=== PATIENT | male | born 1945 | race Two or more races ===

== ENCOUNTER → 2019-04-28 | Outpatient (CLI) | payer MEDICARE | END | disposition home or self-care (01) | LOC: CFH 12:27 | PROVIDERS: ATTEND Physician Assistant Medical | DX: M47.817 Spondylosis without myelopathy or radiculopathy, lumbosacral region (principal) | CPT/HCPCS: 72148 ==

== ENCOUNTER 2019-05-22 00:30 | Emergency (ER) | payer MEDICARE ==
[~2019-05-22] VITALS: Ht 165.1 cm; Wt 75.0 kg
[2019-05-22 04:10] VITALS: BP 146/76
== END 2019-05-22 04:12 | disposition short-term general hospital (02) ==
LOC: ED 00:55
DX: I63.9 Cerebral infarction, unspecified (principal); I60.8 Other nontraumatic subarachnoid hemorrhage; R94.31 Abnormal electrocardiogram [ECG] [EKG]; R74.8 Abnormal levels of other serum enzymes; I10 Essential (primary) hypertension; E11.9 Type 2 diabetes mellitus without complications
CPT/HCPCS: 36415; 70450; 70496; 70498; 71045; 72190; 73080; 80053; 84484; 85025; 85610; 85730; 93005; 96365; 96375; 99291; 99292; J1100; J1953; J7050; Q9967

== ENCOUNTER 2020-01-18 05:33 | Inpatient (IN) | payer MEDICARE ==
[~2020-01-18] VITALS: Ht 165.1 cm; Wt 62.8 kg
[~2020-01-18 05:33] MED LIST: ACET650S21 PO; ASPI-496 PO; ATOR20TA37 PO; FLUT1BLS3 IH; IBUP200T64 PO; LISI-167 PO; METF500T17 PO
[2020-01-18] MEDS ORDERED: LACTATED RINGERS 1,000 ML IV SCH (07:01)
[2020-01-18 07:02] VITALS: BP 131/77
[2020-01-18 07:10] LABS: BASOPHILS # (AUTO) 0.05 x10^3/uL (0-0.1); BASOPHILS % (AUTO) 1 % (0-1); EOSINOPHILS # (AUTO) 0.99 x10^3/uL (0-0.4); EOSINOPHILS % (AUTO) 11 % (1-7); LYMPHOCYTES # (AUTO) 1.69 x10^3/uL (1-3.4); LYMPHOCYTES % (AUTO) 19 % (22-44); MD NO; MEAN CORPUSCULAR HEMOGLOBIN 26.3 pg (27.5-34.5); MEAN CORPUSCULAR HGB CONC 32.1 g/dL (33.2-36.2); MEAN CORPUSCULAR VOLUME 81.8 fL (81-97); MEAN PLATELET VOLUME 9.3 fL (7.4-10.4); MONOCYTES # (AUTO) 0.65 x10^3/uL (0.2-0.8); MONOCYTES % (AUTO) 8 % (2-9); NEUTROPHILS # (AUTO) 5.35 x10^3/uL (1.8-6.8); NEUTROPHILS % (AUTO) 61 % (42-75); PLATELET COUNT 194 x10^3/uL (130-400); RED BLOOD COUNT 5.56 x10^6/uL (4.38-5.82); RED CELL DISTRIBUTION WIDTH 18.2 % (9.4-14.8)
[2020-01-18 07:12] LABS: ALANINE AMINOTRANSFERASE 32 U/L (12-78); ALBUMIN 3.6 g/dL (3.4-5.0); ANION GAP 9 mmol/L (5-15); CALCIUM 9.6 mg/dL (8.5-10.1); CHLORIDE 105 mmol/L (98-107); INTERNATIONAL NORMALIZED RATIO 1.02 (0.93-1.1); PROTHROMBIN TIME 10.8 Seconds (9.6-11.5)
[2020-01-18 07:14] LABS: ALKALINE PHOSPHATASE 72 U/L (45-117); BILIRUBIN,TOTAL 0.4 mg/dL (0.2-1.0); TOTAL PROTEIN 7.5 g/dL (6.4-8.2)
[2020-01-18] MEDS ORDERED: FENTANYL PF 250 MCG/5ML ONE (10:40)
[2020-01-18] MEDS ORDERED: PHENYLEPHRINE 10 MG/ML ONE (10:54)
[2020-01-18] MEDS ORDERED: BUPIVACAINE/PF-EPI 0.5% 1:200K INFIL ONE (11:38)
[2020-01-18] MEDS ORDERED: BACITRACIN 50,000 UNIT IRRIG ONE (11:39)
[2020-01-18] MEDS ORDERED: BACITRACIN OINT 500U/GM, 15 GM TP ONE (11:39)
[2020-01-18] MEDS ORDERED: SUCCINYLCHOLINE 20 MG/ML, 10ML ONE (12:17)
[2020-01-18] MEDS ORDERED: ONDANSETRON 2MG/ML, 2ML ONE (12:17)
[2020-01-18] MEDS ORDERED: PROPOFOL 10 MG/ML, 20ML ONE (12:17)
[2020-01-18] MEDS ORDERED: CEFAZOLIN 1,000 MG ONE (12:17)
[2020-01-18] MEDS ORDERED: SUGAMMADEX 200 MG/2 ML IVPush ONE (12:17)
[2020-01-18] MEDS ORDERED: ROCURONIUM 10MG/ML,5ML ONE (12:17)
[2020-01-18] MEDS ORDERED: DEXAMETHASONE 4 MG/ML, 1ML ONE (12:17)
[2020-01-18] MEDS ORDERED: hydrALAzine 20 MG/ML, 1ML ONE (13:16)
[2020-01-18] MEDS ORDERED: FENTANYL PF 100 MCG/2ML ONE (13:22)
[2020-01-18] MEDS ORDERED: OXYcodone 5 MG/5 ML ORAL.SOL UDC ONE (13:23)
[2020-01-18] MEDS: FENTANYL PF 100 MCG/2ML IV PRN ×2 (13:25→13:30)
[2020-01-18] MEDS ORDERED: OXYcodone 5 MG/5 ML ORAL.SOL UDC PO PRN (13:30)
[2020-01-18] MEDS ORDERED: LABETALOL 5MG/ML, 20ML IV PRN (13:30)
[2020-01-18] MEDS ORDERED: hydrALAzine 20 MG/ML, 1ML IV PRN (13:30)
[2020-01-18] MEDS ORDERED: IBUPROFEN 200 MG TABLET PO PRN (14:30)
[2020-01-18] MEDS ORDERED: ACETAMINOPHEN 325 MG TABLET PO PRN (14:30)
[2020-01-18] MEDS ORDERED: metFORMIN 500 MG TABLET PO SCH (17:00)
[2020-01-18] MEDS ORDERED: ATORVASTATIN 20 MG TABLET PO SCH (21:00)
[2020-01-19] MEDS ORDERED: LISINOPRIL 5 MG TABLET PO SCH (09:00)
== END 2020-01-18 16:35 | disposition home or self-care (01) | DRG 31 ==
LOC: ORIP 05:33
PROVIDERS: ADMIT Neurological Surgery; ATTEND Neurological Surgery
PROC: 00164J6 Bypass Cerebral Ventricle to Peritoneal Cavity with Synthetic Substitute, Percutaneous Endoscopic Approach (ICD-10-PCS; principal; 2020-01-18 08:30)
DX: G91.9 Hydrocephalus, unspecified (principal); G93.5 Compression of brain; I10 Essential (primary) hypertension; E11.8 Type 2 diabetes mellitus with unspecified complications; Z85.841 Personal history of malignant neoplasm of brain; Z72.0 Tobacco use; Z80.9 Family history of malignant neoplasm, unspecified; Z82.49 Family history of ischemic heart disease and other diseases of the circulatory system; Z83.3 Family history of diabetes mellitus; E78.5 Hyperlipidemia, unspecified
CPT/HCPCS: 70450; 80053; 82962; 85025; 85610; 85730; 93005; J0690; J1100; J2405; J2704; J3010; C1727; C1894; J0330; J0360; J2370

== ENCOUNTER 2020-01-20 09:24 | Inpatient (IN) | payer MEDICARE ==
[~2020-01-20] VITALS: Ht 165.1 cm; Wt 67.1 kg
[2020-01-20] MEDS ORDERED: HYDROmorphone 1 MG/ML, 1ML INJ ONE (09:44)
[2020-01-20] MEDS ORDERED: ONDANSETRON 2MG/ML, 2ML IVPush ONE (10:00)
[2020-01-20] MEDS ORDERED: HYDROmorphone 1 MG/ML, 1ML INJ IVPush PRN (10:00)
[2020-01-20 10:01] LABS: MEAN CORPUSCULAR HEMOGLOBIN 26.4 pg (27.5-34.5); MEAN CORPUSCULAR HGB CONC 32.7 g/dL (33.2-36.2); MEAN CORPUSCULAR VOLUME 80.8 fL (81-97); MEAN PLATELET VOLUME 10.4 fL (7.4-10.4); PLATELET COUNT 123 x10^3/uL (130-400); RED BLOOD COUNT 4.39 x10^6/uL (4.38-5.82); RED CELL DISTRIBUTION WIDTH 18.2 % (9.4-14.8)
[2020-01-20 10:06] LABS: ALBUMIN 3.2 g/dL (3.4-5.0); ANION GAP 7 mmol/L (5-15); CALCIUM 9.1 mg/dL (8.5-10.1); CHLORIDE 104 mmol/L (98-107); INTERNATIONAL NORMALIZED RATIO 1.04 (0.93-1.1)
[2020-01-20 10:50] LABS: BASOPHILS # (AUTO) 0.07 x10^3/uL (0-0.1); BASOPHILS % (AUTO) 1 % (0-1); EOSINOPHILS # (AUTO) 0.01 x10^3/uL (0-0.4); EOSINOPHILS % (AUTO) 0 % (1-7); LYMPHOCYTES # (AUTO) 0.97 x10^3/uL (1-3.4); LYMPHOCYTES % (AUTO) 9 % (22-44); MD SCAN; MONOCYTES # (AUTO) 1.07 x10^3/uL (0.2-0.8); MONOCYTES % (AUTO) 10 % (2-9); NEUTROPHILS # (AUTO) 8.76 x10^3/uL (1.8-6.8); NEUTROPHILS % (AUTO) 81 % (42-75)
--- NOTE | 2020-01-20 11:05 | NUR ---
BIB EMS FOR LEFT HIP FRACTURE W DEFORMITY, HIP EXTERNALLY ROTATED. SENSATION INTACT. PT WAS SMOKING , GOT DIZZY AND FELL. DENIES LOC. PT HAS HAS HISTORY OF BRAIN CANCER W RECENT BRAIN SHUNT PLACED RECENTLY. PT NOT IN DISTRESS, REPSIRATIONS EVEN AND UNLABORED. DENIES SOB, COUGH, FEVER, CHEST PAIN ENGINEER AND GEOLOGIST APPLIED. VSS, PAIN 10/10, MEDICATED PER ORDERS. EKG DONE.
[2020-01-20] MEDS ORDERED: hydrALAzine 20 MG/ML, 1ML IVPush PRN (12:00)
[2020-01-20] MEDS ORDERED: ONDANSETRON 2MG/ML, 2ML IVPush PRN (12:00)
--- NOTE | 2020-01-20 12:34 | NUR ---
PT VOIDED 300 ML. LAB AT BEDSIDE. VSS,
--- NOTE | 2020-01-20 12:50 | NUR ---
REPORT TO STEPH
[2020-01-20 13:14] LABS: FREE T4 (FREE THYROXINE) 1.51 ng/dL (0.76-1.46)
[2020-01-20] MEDS ORDERED: OMNIPAQUE 350 MG/ML, 100ML BOTTLE ONE (13:18)
[2020-01-20 13:55] VITALS: BP 165/83
[2020-01-20] MEDS ORDERED: PHARMACY INSTRUCTION MC ONE (15:00)
[2020-01-20] MEDS: HEPARIN 5,000 UNITS/ML, 1ML SQ SCH ×2 (15:27→21:18)
[2020-01-20] MEDS: D5%-0.45NACL+KCL 20MEQ 1,000 ML IV SCH (15:27)
[2020-01-20] MEDS: NICOTINE 21 MG/24 HR PATCH.TD24 TD SCH (15:27)
[2020-01-20] MEDS: INSULIN LISPRO 100 UNITS/ML, PEN SQ-INSULIN SCH ×2 (16:47→21:15)
[2020-01-20 18:30] VITALS: BP 150/74
[2020-01-20] MEDS: morphine SULFATE 10 MG/ML, 1ML IVPush PRN (19:41)
[2020-01-20] MEDS: ACETAMINOPHEN 325 MG TABLET PO PRN (22:50)
[2020-01-21] MEDS: D5%-0.45NACL+KCL 20MEQ 1,000 ML IV SCH (01:39)
[2020-01-21 01:40] VITALS: BP 135/74
[2020-01-21] MEDS: morphine SULFATE 10 MG/ML, 1ML IVPush PRN ×2 (03:56→20:27)
[2020-01-21 05:58] LABS: BASOPHILS # (AUTO) 0.03 x10^3/uL (0-0.1); BASOPHILS % (AUTO) 0 % (0-1); EOSINOPHILS # (AUTO) 0.06 x10^3/uL (0-0.4); EOSINOPHILS % (AUTO) 1 % (1-7); LYMPHOCYTES # (AUTO) 0.93 x10^3/uL (1-3.4); LYMPHOCYTES % (AUTO) 10 % (22-44); MD NO; MEAN CORPUSCULAR HEMOGLOBIN 26.8 pg (27.5-34.5); MEAN CORPUSCULAR HGB CONC 32.8 g/dL (33.2-36.2); MEAN CORPUSCULAR VOLUME 81.6 fL (81-97); MEAN PLATELET VOLUME 9.7 fL (7.4-10.4); MONOCYTES # (AUTO) 0.94 x10^3/uL (0.2-0.8); MONOCYTES % (AUTO) 10 % (2-9); NEUTROPHILS # (AUTO) 7.84 x10^3/uL (1.8-6.8); NEUTROPHILS % (AUTO) 80 % (42-75); PLATELET COUNT 131 x10^3/uL (130-400); RED CELL DISTRIBUTION WIDTH 18.4 % (9.4-14.8)
[2020-01-21 06:04] LABS: ALBUMIN 2.7 g/dL (3.4-5.0); ANION GAP 6 mmol/L (5-15); CALCIUM 8.6 mg/dL (8.5-10.1); CHLORIDE 102 mmol/L (98-107)
[2020-01-21 06:09] LABS: ALANINE AMINOTRANSFERASE 71 U/L (12-78); ALKALINE PHOSPHATASE 60 U/L (45-117); BILIRUBIN,TOTAL 0.6 mg/dL (0.2-1.0); CHOL/HDL RATIO 2.7; CHOLESTEROL, TOTAL 93 mg/dL (140-239); CREATININE 0.76 mg/dL (0.7-1.3); HDL CHOL % 38 % (26-37); HDL CHOLESTEROL (DIRECT) 35 mg/dL (40-60); LDL CHOLESTEROL,CALCULATED 41 mg/dL (54-169); LDL/HDL RATIO 1.2 (0.5-3.0); TOTAL PROTEIN 6.3 g/dL (6.4-8.2); TRIGLYCERIDES 86 mg/dL (50-200); VLDL CHOLESTEROL 17 mg/dL (0-25)
[2020-01-21 06:38] VITALS: BP 154/82
[2020-01-21] MEDS: INSULIN LISPRO 100 UNITS/ML, PEN SQ-INSULIN SCH ×4 (07:00→20:26)
[2020-01-21] MEDS ORDERED: PANTOPRAZOLE 40 MG IV IVPush SCH (07:30)
[2020-01-21] MEDS: LACTATED RINGERS 1,000 ML IV SCH ×2 (08:30→20:26)
[2020-01-21] MEDS: LISINOPRIL 5 MG TABLET PO SCH (09:00)
[2020-01-21] MEDS ORDERED: GADOTERATE 7.5 MMOL/15 ML SYR ONE (09:26)
[2020-01-21] MEDS ORDERED: PROPOFOL 50 ML ONE (11:22)
[2020-01-21] MEDS ORDERED: FENTANYL PF 100 MCG/2ML ONE (11:27)
[2020-01-21] MEDS ORDERED: CEFAZOLIN 1,000 MG ONE (11:27)
[2020-01-21] MEDS ORDERED: ROCURONIUM 10 MG/ML,10ML ONE (11:27)
[2020-01-21] MEDS ORDERED: ONDANSETRON 2MG/ML, 2ML ONE (11:27)
[2020-01-21] MEDS ORDERED: SUCCINYLCHOLINE 20 MG/ML, 10ML ONE (11:43)
[2020-01-21] MEDS ORDERED: FENTANYL PF 250 MCG/5ML ONE (11:45)
[2020-01-21] MEDS ORDERED: MIDAZOLAM 1 MG/ML, 2ML IV PRN (12:00)
[2020-01-21] MEDS ORDERED: LABETALOL 5MG/ML, 20ML IV PRN (12:00)
[2020-01-21] MEDS ORDERED: ONDANSETRON 2MG/ML, 2ML IV PRN (12:00)
[2020-01-21] MEDS ORDERED: ONDANSETRON ODT 8 MG PO PRN (12:00)
[2020-01-21] MEDS ORDERED: EPHEDRINE 50 MG/ML, 1ML IM PRN (12:00)
[2020-01-21] MEDS ORDERED: HYDROmorphone 2 MG/ML, 1ML IVPush PRN (12:00)
[2020-01-21] MEDS ORDERED: OXYcodone 5 MG/5 ML ORAL.SOL UDC PO PRN (12:00)
[2020-01-21] MEDS ORDERED: FENTANYL PF 100 MCG/2ML IV PRN (12:00)
[2020-01-21] MEDS ORDERED: PROPOFOL 10 MG/ML, 20ML ONE ×2 (12:50)
[2020-01-21] MEDS: NICOTINE 21 MG/24 HR PATCH.TD24 TD SCH (14:00)
[2020-01-21] MEDS ORDERED: hydrALAzine 20 MG/ML, 1ML ONE (14:15)
[2020-01-21 18:15] LABS: MICROSCOPIC AUTO
[2020-01-21 18:21] LABS: CULTURE INDICATED? NO
[2020-01-21 19:40] VITALS: BP 124/73
[2020-01-21] MEDS: ATORVASTATIN 20 MG TABLET PO SCH (20:27)
[2020-01-21] MEDS: ACETAMINOPHEN 325 MG TABLET PO PRN (20:27)
[2020-01-21 23:30] VITALS: BP 126/71
[2020-01-22 03:22] VITALS: BP 148/69
[2020-01-22] MEDS: morphine SULFATE 10 MG/ML, 1ML IVPush PRN ×4 (04:14→19:40)
[2020-01-22 05:54] LABS: BASOPHILS # (AUTO) 0.02 x10^3/uL (0-0.1); BASOPHILS % (AUTO) 0 % (0-1); EOSINOPHILS # (AUTO) 0.19 x10^3/uL (0-0.4); EOSINOPHILS % (AUTO) 3 % (1-7); LYMPHOCYTES % (AUTO) 11 % (22-44); MD NO; MEAN CORPUSCULAR HEMOGLOBIN 26.6 pg (27.5-34.5); MEAN CORPUSCULAR HGB CONC 32.6 g/dL (33.2-36.2); MEAN CORPUSCULAR VOLUME 81.6 fL (81-97); MEAN PLATELET VOLUME 10.4 fL (7.4-10.4); MONOCYTES # (AUTO) 0.77 x10^3/uL (0.2-0.8); MONOCYTES % (AUTO) 11 % (2-9); NEUTROPHILS # (AUTO) 5.35 x10^3/uL (1.8-6.8); NEUTROPHILS % (AUTO) 75 % (42-75); PLATELET COUNT 109 x10^3/uL (130-400); RED BLOOD COUNT 3.23 x10^6/uL (4.38-5.82); RED CELL DISTRIBUTION WIDTH 17.9 % (9.4-14.8)
[2020-01-22 05:56] LABS: ALBUMIN 2.4 g/dL (3.4-5.0); ANION GAP 6 mmol/L (5-15); CALCIUM 8.2 mg/dL (8.5-10.1); CHLORIDE 106 mmol/L (98-107)
[2020-01-22 05:59] LABS: ALANINE AMINOTRANSFERASE 68 U/L (12-78); ALKALINE PHOSPHATASE 61 U/L (45-117); BILIRUBIN,TOTAL 0.7 mg/dL (0.2-1.0); CREATININE 0.65 mg/dL (0.7-1.3); TOTAL PROTEIN 5.7 g/dL (6.4-8.2)
[2020-01-22] MEDS ORDERED: PANTOPRAZOLE 40 MG IV IVPush SCH (06:00)
[2020-01-22] MEDS ORDERED: PANTOPRAZOLE 40MG TABLET PO SCH (06:00)
[2020-01-22] MEDS: LACTATED RINGERS 1,000 ML IV SCH ×2 (06:17→19:00)
[2020-01-22 06:45] VITALS: BP 130/70
[2020-01-22] MEDS: INSULIN LISPRO 100 UNITS/ML, PEN SQ-INSULIN SCH ×4 (07:00→21:04)
[2020-01-22 09:17] VITALS: BP 119/66
[2020-01-22] MEDS: LISINOPRIL 5 MG TABLET PO SCH (09:17)
--- NOTE | 2020-01-22 11:34 | NUR ---
CHOPPED/THINS discharge Recommendations are ongoing skilled [facility] services in [facility] Addendum: 01/22/20 at [address] Amended: Links added.
[2020-01-22 14:05] VITALS: BP 122/64
[2020-01-22] MEDS: NICOTINE 21 MG/24 HR PATCH.TD24 TD SCH (15:05)
[2020-01-22] MEDS: ACETAMINOPHEN 325 MG TABLET PO PRN (19:40)
[2020-01-22 20:00] VITALS: BP 112/64
[2020-01-22] MEDS: BISACODYL 10 MG SUPP PR PRN (20:57)
[2020-01-22] MEDS: ATORVASTATIN 20 MG TABLET PO SCH (20:57)
[2020-01-22] MEDS: HEPARIN 5,000 UNITS/ML, 1ML SQ SCH (20:57)
[2020-01-23 01:58] VITALS: BP 137/66
[2020-01-23] MEDS: morphine SULFATE 10 MG/ML, 1ML IVPush PRN (02:21)
[2020-01-23] MEDS: LACTATED RINGERS 1,000 ML IV SCH (05:04)
[2020-01-23] MEDS: ACETAMINOPHEN 325 MG TABLET PO PRN (05:04)
[2020-01-23] MEDS: HEPARIN 5,000 UNITS/ML, 1ML SQ SCH ×3 (05:04→20:42)
[2020-01-23 06:45] VITALS: BP 115/57
[2020-01-23] MEDS: LISINOPRIL 5 MG TABLET PO SCH (07:55)
[2020-01-23] MEDS: INSULIN LISPRO 100 UNITS/ML, PEN SQ-INSULIN SCH ×4 (07:55→20:45)
[2020-01-23 07:58] VITALS: BP 134/67
[2020-01-23 08:16] LABS: MEAN CORPUSCULAR HEMOGLOBIN 26.6 pg (27.5-34.5); MEAN CORPUSCULAR HGB CONC 32.7 g/dL (33.2-36.2); MEAN CORPUSCULAR VOLUME 81.4 fL (81-97); MEAN PLATELET VOLUME 8.9 fL (7.4-10.4); PLATELET COUNT 137 x10^3/uL (130-400); RED BLOOD COUNT 2.66 x10^6/uL (4.38-5.82); RED CELL DISTRIBUTION WIDTH 17.8 % (9.4-14.8)
[2020-01-23 08:21] LABS: HEMOGRAM NOTE RECHECKED
[2020-01-23 08:38] LABS: BASOPHILS # (AUTO) 0.02 x10^3/uL (0-0.1); BASOPHILS % (AUTO) 0 % (0-1); EOSINOPHILS # (AUTO) 0.26 x10^3/uL (0-0.4); EOSINOPHILS % (AUTO) 5 % (1-7); LYMPHOCYTES # (AUTO) 0.65 x10^3/uL (1-3.4); LYMPHOCYTES % (AUTO) 11 % (22-44); MD SCAN; MONOCYTES # (AUTO) 0.58 x10^3/uL (0.2-0.8); MONOCYTES % (AUTO) 10 % (2-9); NEUTROPHILS # (AUTO) 4.27 x10^3/uL (1.8-6.8); NEUTROPHILS % (AUTO) 74 % (42-75)
[2020-01-23 14:10] VITALS: BP 143/70
[2020-01-23] MEDS: NICOTINE 21 MG/24 HR PATCH.TD24 TD SCH (15:10)
[2020-01-23] MEDS: OXYcodone/APAP 5/325MG TABLET PO PRN ×2 (15:10→20:48)
[2020-01-23] MEDS: BISACODYL 10 MG SUPP PR PRN (15:13)
[2020-01-23 18:06] LABS: BASOPHILS # (AUTO) 0.03 x10^3/uL (0-0.1); BASOPHILS % (AUTO) 0 % (0-1); EOSINOPHILS # (AUTO) 0.19 x10^3/uL (0-0.4); EOSINOPHILS % (AUTO) 2 % (1-7); LYMPHOCYTES # (AUTO) 1.16 x10^3/uL (1-3.4); LYMPHOCYTES % (AUTO) 15 % (22-44); MD NO; MEAN CORPUSCULAR HEMOGLOBIN 26.4 pg (27.5-34.5); MEAN CORPUSCULAR HGB CONC 32.7 g/dL (33.2-36.2); MEAN CORPUSCULAR VOLUME 80.9 fL (81-97); MEAN PLATELET VOLUME 9.1 fL (7.4-10.4); MONOCYTES # (AUTO) 0.77 x10^3/uL (0.2-0.8); MONOCYTES % (AUTO) 10 % (2-9); NEUTROPHILS # (AUTO) 5.57 x10^3/uL (1.8-6.8); NEUTROPHILS % (AUTO) 72 % (42-75); PLATELET COUNT 161 x10^3/uL (130-400); RED BLOOD COUNT 2.99 x10^6/uL (4.38-5.82); RED CELL DISTRIBUTION WIDTH 17.6 % (9.4-14.8)
[2020-01-23 19:17] VITALS: BP 118/61
[2020-01-23] MEDS: ATORVASTATIN 20 MG TABLET PO SCH (20:41)
[2020-01-23] MEDS ORDERED: TEMAZEPAM 15 MG CAPSULE ONE (23:00)
[2020-01-23] MEDS ORDERED: TEMAZEPAM 15 MG CAPSULE PO PRN (23:00)
[2020-01-24 02:36] VITALS: BP 139/62
[2020-01-24 05:09] LABS: BASOPHILS # (AUTO) 0.02 x10^3/uL (0-0.1); BASOPHILS % (AUTO) 0 % (0-1); EOSINOPHILS # (AUTO) 0.37 x10^3/uL (0-0.4); EOSINOPHILS % (AUTO) 5 % (1-7); LYMPHOCYTES # (AUTO) 1.06 x10^3/uL (1-3.4); LYMPHOCYTES % (AUTO) 13 % (22-44); MD NO; MEAN CORPUSCULAR HEMOGLOBIN 26.9 pg (27.5-34.5); MEAN CORPUSCULAR HGB CONC 33.2 g/dL (33.2-36.2); MEAN CORPUSCULAR VOLUME 81.1 fL (81-97); MEAN PLATELET VOLUME 9.3 fL (7.4-10.4); MONOCYTES # (AUTO) 0.65 x10^3/uL (0.2-0.8); MONOCYTES % (AUTO) 8 % (2-9); NEUTROPHILS # (AUTO) 5.98 x10^3/uL (1.8-6.8); NEUTROPHILS % (AUTO) 74 % (42-75); PLATELET COUNT 178 x10^3/uL (130-400); RED CELL DISTRIBUTION WIDTH 17.9 % (9.4-14.8)
[2020-01-24] MEDS: HEPARIN 5,000 UNITS/ML, 1ML SQ SCH ×2 (06:00→14:31)
[2020-01-24 07:15] VITALS: BP 158/73
[2020-01-24] MEDS: LISINOPRIL 5 MG TABLET PO SCH (08:13)
[2020-01-24] MEDS: OXYcodone/APAP 5/325MG TABLET PO PRN ×2 (08:13→14:30)
[2020-01-24] MEDS: INSULIN LISPRO 100 UNITS/ML, PEN SQ-INSULIN SCH ×2 (08:14→11:12)
[2020-01-24] MEDS ORDERED: LISINOPRIL 5 MG TABLET PO SCH (09:00)
[2020-01-24] MEDS ORDERED: HEPA50002 SQ (10:54)
[2020-01-24] MEDS ORDERED: LISI5TAB7 PO (10:54)
[2020-01-24 12:35] VITALS: BP 120/61
[2020-01-24] MEDS: NICOTINE 21 MG/24 HR PATCH.TD24 TD SCH (14:33)
[2020-01-24] MEDS ORDERED: OXYC5CAP2 PO (14:41)
== END 2020-01-24 16:17 | DRG 480 ==
LOC: ED 09:53 → SUATTDRO 11:54 → EDIP 11:59 → 4NE 13:33
PROVIDERS: ADMIT Hospitalist; ATTEND Internal Medicine
PROC: 0QS706Z Reposition Left Upper Femur with Intramedullary Internal Fixation Device, Open Approach (ICD-10-PCS; principal; 2020-01-21 10:00)
DX: S72.142A Displaced intertrochanteric fracture of left femur, initial encounter for closed fracture (principal); G93.41 Metabolic encephalopathy; D62 Acute posthemorrhagic anemia; W18.30XA Fall on same level, unspecified, initial encounter; E11.9 Type 2 diabetes mellitus without complications; F03.90 Unspecified dementia, unspecified severity, without behavioral disturbance, psychotic disturbance, mood disturbance, and anxiety; I45.10 Unspecified right bundle-branch block; R13.10 Dysphagia, unspecified; Y93.89 Activity, other specified; Y99.8 Other external cause status; Z86.73 Personal history of transient ischemic attack (TIA), and cerebral infarction without residual deficits; Y92.009 Unspecified place in unspecified non-institutional (private) residence as the place of occurrence of the external cause; Z92.21 Personal history of antineoplastic chemotherapy; Z92.3 Personal history of irradiation; Z85.841 Personal history of malignant neoplasm of brain; Z98.2 Presence of cerebrospinal fluid drainage device
CPT/HCPCS: 36415; 70450; 71045; 71260; 74177; 76000; 80048; 80053; 80061; 81001; 82040; 82140; 82728; 82962; 83036; 83540; 83550; 84439; 84443; 85025; 85610; 85730; 88307; 88311; 93005; 96374; C1713; G0378; J0690; J1170; J1644; J2405; J2704; J3010; Q9967; A9575; C9113; J0330; J0360; J1815; J2270; J3480; J7120

== ENCOUNTER 2020-02-21 09:04 | Inpatient (IN) | payer MEDICARE ==
[~2020-02-21] VITALS: Ht 177.8 cm; Wt 58.2 kg
[~2020-02-21 09:04] MED LIST changes: +HEPA50002 SQ; +LISI5TAB7 PO; +OXYC5CAP2 PO
--- NOTE | 2020-02-21 09:05 | NUR ---
Pt BIB [facility] after being found down at home with a GCS of 6 and a glucose of 25. Pt called [facility] and reports last "normal" time was 2100 last night. Pt received glucose enroute. Pt is restless and refusing to stay still despite reorientation. Pt does not answer questions asked in lao or romanian to primary RN. Pt is P/W/D, NAD, moving all extremities. 09 Asuh CHANG at BS for Eval and to discuss POC. 09 Glory ROJAS at BS for Eval, EKG obtained, POC discussed.
[2020-02-21] MEDS ORDERED: SODIUM CHLORIDE 0.9% 1,000ML IVBOLUS ONE (09:30)
[2020-02-21] MEDS ORDERED: LORazepam 2 MG/ML, 1ML IVPush ONE (09:30)
[2020-02-21] MEDS ORDERED: LORazepam 2 MG/ML, 1ML ONE (09:34)
[2020-02-21 09:47] LABS: CULTURE INDICATED? YES; MICROSCOPIC INDICATED
--- NOTE | 2020-02-21 10:10 | NUR ---
Pt laying in [facility], NAD, P/W/D, NUNN, RESP WNL, medicated per DEC, waiting for lab and rad results then room for admit. WCTM. Sitter within line of site.
--- NOTE | 2020-02-21 10:13 | NUR ---
lab to redraw pt
[2020-02-21] MEDS ORDERED: mirtazapine (10:21)
[2020-02-21] MEDS ORDERED: cephalexin (10:21)
[2020-02-21] MEDS ORDERED: fluticasone (10:21)
[2020-02-21 10:22] LABS: ALANINE AMINOTRANSFERASE 25 U/L (12-78); ALBUMIN 3.1 g/dL (3.4-5.0); ANION GAP 9 mmol/L (5-15); CALCIUM 9.1 mg/dL (8.5-10.1); CHLORIDE 105 mmol/L (98-107)
[2020-02-21 10:25] LABS: ALKALINE PHOSPHATASE 130 U/L (45-117); BILIRUBIN,TOTAL 0.5 mg/dL (0.2-1.0); TOTAL PROTEIN 7.5 g/dL (6.4-8.2)
[2020-02-21 10:40] LABS: MEAN CORPUSCULAR HEMOGLOBIN 26.3 pg (27.5-34.5); MEAN CORPUSCULAR VOLUME 82.2 fL (81-97); RED BLOOD COUNT 4.93 x10^6/uL (4.38-5.82); RED CELL DISTRIBUTION WIDTH 19.5 % (9.4-14.8)
--- NOTE | 2020-02-21 10:54 | NUR ---
RECEIVED REPORT FROM NOAH. PT LAYINFG ON GURNEY WITH EYES CLOSED BUT RESTLESS, FGREQUENT REORIENTATION MINIMALLY HELPFUL, NAD WITH SUPPL O2 IN PLACE, COMFORT MEASURES PROVIDED, CALL LIGHT WITHIN REACH & SITTER IN VIEW.
[2020-02-21 11:04] LABS: BASOPHILS # (AUTO) 0.02 x10^3/uL (0-0.1); BASOPHILS % (AUTO) 0 % (0-1); EOSINOPHILS % (AUTO) 0 % (1-7); LYMPHOCYTES # (AUTO) 0.73 x10^3/uL (1-3.4); LYMPHOCYTES % (AUTO) 5 % (22-44); MD SCAN; MEAN PLATELET VOLUME 11.1 fL (7.4-10.4); MONOCYTES # (AUTO) 0.55 x10^3/uL (0.2-0.8); MONOCYTES % (AUTO) 4 % (2-9); NEUTROPHILS # (AUTO) 12.56 x10^3/uL (1.8-6.8); NEUTROPHILS % (AUTO) 91 % (42-75); PLATELET COUNT 137 x10^3/uL (130-400)
[2020-02-21] MEDS ORDERED: DEXTROSE 50%, 50ML SYRINGE ONE (11:22)
[2020-02-21] MEDS ORDERED: DEXTROSE 50%, 50ML SYRINGE IVPush ONE (11:30)
[2020-02-21] MEDS: D5%-0.45% NACL 500 ML IV SCH ×5 (11:31→23:00)
[2020-02-21] MEDS ORDERED: ONDANSETRON 2MG/ML, 2ML ONE (12:19)
[2020-02-21] MEDS ORDERED: MORPHINE SULFATE 4 MG/ML, 1ML ONE (12:20)
[2020-02-21] MEDS ORDERED: D5%-0.45% NACL 1,000 ML IV ONE (12:23)
[2020-02-21] MEDS ORDERED: SODIUM CHLORIDE FLUSH 10ML SYR IVF PRN (12:30)
[2020-02-21] MEDS ORDERED: ONDANSETRON 2MG/ML, 2ML IVPush ONE (12:30)
[2020-02-21] MEDS ORDERED: MORPHINE SULFATE 4 MG/ML, 1ML IVPush PRN (12:30)
[2020-02-21] MEDS ORDERED: D5%-0.45% NACL 1,000 ML IV SCH (12:46)
[2020-02-21] MEDS ORDERED: ONDANSETRON 2MG/ML, 2ML IVPush PRN (13:00)
[2020-02-21] MEDS ORDERED: ACETAMINOPHEN 325 MG TABLET PO PRN (13:00)
[2020-02-21] MEDS ORDERED: DEXTROSE 4 GM TAB.CHEW PO PRN (13:00)
[2020-02-21] MEDS ORDERED: GLUCAGON 1 MG IM PRN (13:00)
[2020-02-21 13:33] LABS: FREE T4 (FREE THYROXINE) 1.08 ng/dL (0.76-1.46)
[2020-02-21] MEDS: DEXTROSE 50%, 50ML SYRINGE IVPush PRN ×7 (13:42→23:59)
[2020-02-21] MEDS: HEPARIN 5,000 UNITS/ML, 1ML SQ SCH ×2 (14:26→20:15)
--- NOTE | 2020-02-21 14:27 | NUR ---
Pt to be admitted to [facility] , room 544. Report called to .
[2020-02-21] MEDS ORDERED: MAGNESIUM SULFATE PMX 2GM/50ML 50 ML IV ONE (15:30)
[2020-02-21] MEDS ORDERED: CEFTRIAXONE PMX 1GM/50ML 50 ML IV SCH (16:00)
[2020-02-21] MEDS: DEXTROSE 10% 1,000 ML IV SCH ×2 (17:21→23:00)
[2020-02-21] MEDS ORDERED: LORazepam 2 MG/ML, 1ML IVPush PRN (18:30)
[2020-02-21 19:55] LABS: ANION GAP 3 mmol/L (5-15); CALCIUM 8.5 mg/dL (8.5-10.1); CHLORIDE 103 mmol/L (98-107); CREATININE 0.66 mg/dL (0.7-1.3)
[2020-02-21] MEDS: SODIUM CHLORIDE FLUSH 10ML SYR IVF SCH (20:16)
[2020-02-22] MEDS: DEXTROSE 50%, 50ML SYRINGE IVPush PRN ×6 (01:27→14:37)
[2020-02-22] MEDS: D5%-0.45% NACL 500 ML IV SCH (03:58)
[2020-02-22 04:00] VITALS: BP 144/68
[2020-02-22 04:56] LABS: BASOPHILS # (AUTO) 0.03 x10^3/uL (0-0.1); BASOPHILS % (AUTO) 0 % (0-1); EOSINOPHILS # (AUTO) 0.24 x10^3/uL (0-0.4); EOSINOPHILS % (AUTO) 3 % (1-7); LYMPHOCYTES # (AUTO) 1.04 x10^3/uL (1-3.4); LYMPHOCYTES % (AUTO) 11 % (22-44); MD NO; MEAN CORPUSCULAR HEMOGLOBIN 26.3 pg (27.5-34.5); MEAN CORPUSCULAR HGB CONC 31.8 g/dL (33.2-36.2); MEAN CORPUSCULAR VOLUME 82.6 fL (81-97); MONOCYTES % (AUTO) 6 % (2-9); NEUTROPHILS # (AUTO) 7.53 x10^3/uL (1.8-6.8); NEUTROPHILS % (AUTO) 80 % (42-75); PLATELET COUNT 166 x10^3/uL (130-400); RED BLOOD COUNT 4.13 x10^6/uL (4.38-5.82); RED CELL DISTRIBUTION WIDTH 19.2 % (9.4-14.8)
[2020-02-22 04:59] LABS: ANION GAP 6 mmol/L (5-15); CALCIUM 8.7 mg/dL (8.5-10.1); CHLORIDE 103 mmol/L (98-107)
[2020-02-22] MEDS: HEPARIN 5,000 UNITS/ML, 1ML SQ SCH ×3 (05:47→21:37)
[2020-02-22] MEDS: DEXTROSE 10% 1,000 ML IV SCH ×2 (05:47→20:20)
[2020-02-22] MEDS: SODIUM CHLORIDE FLUSH 10ML SYR IVF SCH ×2 (07:44→21:37)
[2020-02-22] MEDS: PANTOPRAZOLE 40 MG IV IVPush SCH (08:30)
[2020-02-22] MEDS: SENNA/DOCUSATE TABLET PO SCH (08:30)
[2020-02-22] MEDS ORDERED: D5%-0.45% NACL 1,000 ML IV SCH (14:00)
[2020-02-22] MEDS ORDERED: FOSFOMYCIN 3 GM PACKET PO ONE (14:30)
[2020-02-22] MEDS ORDERED: DEXTROSE 10%, 1,000ML IV SCH (16:30)
[2020-02-22] MEDS ORDERED: DEXTROSE 10% 1,000 ML IV SCH (16:30)
[2020-02-22] MEDS: ERYTHROMYCIN OPHTH 0.5%, 1GM EACHEYE SCH ×2 (16:33→21:37)
[2020-02-22 20:26] VITALS: BP 151/65
[2020-02-23] MEDS: DEXTROSE 10% 1,000 ML IV SCH (02:04)
[2020-02-23 04:14] VITALS: BP 159/70
[2020-02-23] MEDS: HEPARIN 5,000 UNITS/ML, 1ML SQ SCH ×3 (06:11→21:30)
[2020-02-23] MEDS: ERYTHROMYCIN OPHTH 0.5%, 1GM EACHEYE SCH ×4 (06:11→21:00)
[2020-02-23] MEDS: PANTOPRAZOLE 40 MG IV IVPush SCH (08:39)
[2020-02-23] MEDS: SENNA/DOCUSATE TABLET PO SCH (08:39)
[2020-02-23] MEDS: SODIUM CHLORIDE FLUSH 10ML SYR IVF SCH ×2 (08:40→21:00)
[2020-02-23 09:10] LABS: ANION GAP 7 mmol/L (5-15); CHLORIDE 105 mmol/L (98-107)
[2020-02-23 09:12] LABS: CREATININE 0.64 mg/dL (0.7-1.3)
[2020-02-23 16:25] VITALS: BP 144/64
[2020-02-23 20:46] VITALS: BP 171/75
[2020-02-23] MEDS: LISINOPRIL 10 MG TABLET PO SCH (21:00)
[2020-02-24 02:25] VITALS: BP 124/75
[2020-02-24 04:37] LABS: ANION GAP 6 mmol/L (5-15); CHLORIDE 104 mmol/L (98-107); CREATININE 0.61 mg/dL (0.7-1.3)
[2020-02-24 04:48] LABS: BASOPHILS # (AUTO) 0.04 x10^3/uL (0-0.1); BASOPHILS % (AUTO) 1 % (0-1); EOSINOPHILS # (AUTO) 0.58 x10^3/uL (0-0.4); EOSINOPHILS % (AUTO) 8 % (1-7); LYMPHOCYTES # (AUTO) 0.96 x10^3/uL (1-3.4); LYMPHOCYTES % (AUTO) 14 % (22-44); MD NO; MEAN CORPUSCULAR HEMOGLOBIN 25.9 pg (27.5-34.5); MEAN CORPUSCULAR HGB CONC 31.5 g/dL (33.2-36.2); MEAN CORPUSCULAR VOLUME 82.2 fL (81-97); MEAN PLATELET VOLUME 9.3 fL (7.4-10.4); MONOCYTES % (AUTO) 6 % (2-9); NEUTROPHILS # (AUTO) 5.11 x10^3/uL (1.8-6.8); NEUTROPHILS % (AUTO) 72 % (42-75); PLATELET COUNT 201 x10^3/uL (130-400); RED BLOOD COUNT 4.46 x10^6/uL (4.38-5.82); RED CELL DISTRIBUTION WIDTH 19.6 % (9.4-14.8)
[2020-02-24] MEDS: HEPARIN 5,000 UNITS/ML, 1ML SQ SCH ×3 (05:38→21:27)
[2020-02-24] MEDS: ERYTHROMYCIN OPHTH 0.5%, 1GM EACHEYE SCH ×4 (05:38→21:26)
[2020-02-24 07:34] VITALS: BP 125/67
[2020-02-24] MEDS: PANTOPRAZOLE 40 MG IV IVPush SCH (07:37)
[2020-02-24] MEDS: LISINOPRIL 10 MG TABLET PO SCH ×2 (08:35→21:26)
[2020-02-24] MEDS: SENNA/DOCUSATE TABLET PO SCH (08:35)
[2020-02-24] MEDS: SODIUM CHLORIDE FLUSH 10ML SYR IVF SCH ×2 (08:35→19:47)
[2020-02-24 08:41] VITALS: BP 113/62
[2020-02-24 11:50] VITALS: BP 114/60
[2020-02-24] MEDS: INSULIN LISPRO 100 UNITS/ML, PEN SQ-INSULIN SCH ×2 (17:25→21:50)
[2020-02-24 19:14] VITALS: BP 116/62
[2020-02-25 02:16] VITALS: BP 125/70
[2020-02-25] MEDS: ERYTHROMYCIN OPHTH 0.5%, 1GM EACHEYE SCH ×4 (06:35→20:36)
[2020-02-25] MEDS: HEPARIN 5,000 UNITS/ML, 1ML SQ SCH ×3 (06:35→20:35)
[2020-02-25] MEDS: INSULIN LISPRO 100 UNITS/ML, PEN SQ-INSULIN SCH ×4 (07:00→21:00)
[2020-02-25] MEDS: PANTOPRAZOLE 40 MG IV IVPush SCH (08:03)
[2020-02-25] MEDS: SENNA/DOCUSATE TABLET PO SCH (08:03)
[2020-02-25] MEDS: SODIUM CHLORIDE FLUSH 10ML SYR IVF SCH ×2 (08:03→20:36)
[2020-02-25] MEDS: LISINOPRIL 10 MG TABLET PO SCH ×2 (08:03→20:35)
[2020-02-25 08:24] VITALS: BP 161/79
[2020-02-25 13:09] VITALS: BP 125/72
[2020-02-25 19:33] VITALS: BP 123/70
[2020-02-26 01:33] VITALS: BP 148/76
[2020-02-26] MEDS: HEPARIN 5,000 UNITS/ML, 1ML SQ SCH ×3 (05:23→20:15)
[2020-02-26] MEDS: ERYTHROMYCIN OPHTH 0.5%, 1GM EACHEYE SCH ×4 (05:23→20:16)
[2020-02-26 06:44] VITALS: BP 138/72
[2020-02-26] MEDS: INSULIN LISPRO 100 UNITS/ML, PEN SQ-INSULIN SCH ×4 (07:51→20:15)
[2020-02-26] MEDS: PANTOPRAZOLE 40 MG IV IVPush SCH (07:52)
[2020-02-26] MEDS: SENNA/DOCUSATE TABLET PO SCH (07:52)
[2020-02-26] MEDS: LISINOPRIL 10 MG TABLET PO SCH ×2 (07:52→20:14)
[2020-02-26] MEDS: SODIUM CHLORIDE FLUSH 10ML SYR IVF SCH ×2 (07:53→20:15)
[2020-02-26 13:26] VITALS: BP 127/77
[2020-02-26 19:18] VITALS: BP_SYST 169; BP_SYST 171; BP_DIAS 76; BP_DIAS 80
[2020-02-27 03:03] VITALS: BP 163/89
[2020-02-27 05:58] LABS: BASOPHILS # (AUTO) 0.04 x10^3/uL (0-0.1); BASOPHILS % (AUTO) 1 % (0-1); EOSINOPHILS # (AUTO) 0.56 x10^3/uL (0-0.4); EOSINOPHILS % (AUTO) 7 % (1-7); LYMPHOCYTES # (AUTO) 1.61 x10^3/uL (1-3.4); LYMPHOCYTES % (AUTO) 21 % (22-44); MD NO; MEAN CORPUSCULAR HGB CONC 31.5 g/dL (33.2-36.2); MEAN CORPUSCULAR VOLUME 82.5 fL (81-97); MEAN PLATELET VOLUME 8.9 fL (7.4-10.4); MONOCYTES # (AUTO) 0.71 x10^3/uL (0.2-0.8); MONOCYTES % (AUTO) 9 % (2-9); NEUTROPHILS # (AUTO) 4.75 x10^3/uL (1.8-6.8); NEUTROPHILS % (AUTO) 62 % (42-75); PLATELET COUNT 257 x10^3/uL (130-400); RED BLOOD COUNT 4.73 x10^6/uL (4.38-5.82); RED CELL DISTRIBUTION WIDTH 19.7 % (9.4-14.8)
[2020-02-27 06:23] LABS: ALBUMIN 2.9 g/dL (3.4-5.0); ANION GAP 6 mmol/L (5-15); CALCIUM 9.9 mg/dL (8.5-10.1); CHLORIDE 101 mmol/L (98-107)
[2020-02-27] MEDS: ERYTHROMYCIN OPHTH 0.5%, 1GM EACHEYE SCH ×2 (06:27→12:02)
[2020-02-27] MEDS: HEPARIN 5,000 UNITS/ML, 1ML SQ SCH ×2 (06:27→13:30)
[2020-02-27 06:34] LABS: ALANINE AMINOTRANSFERASE 45 U/L (12-78); ALKALINE PHOSPHATASE 116 U/L (45-117); BILIRUBIN,TOTAL 0.6 mg/dL (0.2-1.0); CREATININE 0.76 mg/dL (0.7-1.3); TOTAL PROTEIN 6.9 g/dL (6.4-8.2)
[2020-02-27] MEDS: INSULIN LISPRO 100 UNITS/ML, PEN SQ-INSULIN SCH ×2 (07:00→12:03)
[2020-02-27 07:02] VITALS: BP 157/78
[2020-02-27] MEDS: PANTOPRAZOLE 40 MG IV IVPush SCH (07:30)
[2020-02-27] MEDS: SODIUM CHLORIDE FLUSH 10ML SYR IVF SCH (08:58)
[2020-02-27] MEDS: LISINOPRIL 10 MG TABLET PO SCH (08:58)
[2020-02-27] MEDS: SENNA/DOCUSATE TABLET PO SCH (08:58)
[2020-02-27] MEDS ORDERED: SODIUM CHLORIDE 1 GM TABLET PO SCH (10:30)
[2020-02-27 14:39] VITALS: BP 143/76
== END 2020-02-27 17:40 | disposition still patient (30) | DRG 917 ==
LOC: ED 09:44 → EDIP 12:23 → CCU 13:20 → 3N 02-23 16:17 → 3WST 02-24 11:00
PROVIDERS: ADMIT Hospitalist; ATTEND Internal Medicine Infectious Disease
DX: T38.3X1A Poisoning by insulin and oral hypoglycemic [antidiabetic] drugs, accidental (unintentional), initial encounter (principal); G93.41 Metabolic encephalopathy; N39.0 Urinary tract infection, site not specified; C71.9 Malignant neoplasm of brain, unspecified; G91.9 Hydrocephalus, unspecified; T38.3X4A Poisoning by insulin and oral hypoglycemic [antidiabetic] drugs, undetermined, initial encounter; I45.10 Unspecified right bundle-branch block; E11.65 Type 2 diabetes mellitus with hyperglycemia; R53.81 Other malaise; E16.1 Other hypoglycemia; D72.829 Elevated white blood cell count, unspecified; Z96.642 Presence of left artificial hip joint; Y92.89 Other specified places as the place of occurrence of the external cause; Z86.73 Personal history of transient ischemic attack (TIA), and cerebral infarction without residual deficits; Z79.4 Long term (current) use of insulin; Z85.841 Personal history of malignant neoplasm of brain; Z78.1 Physical restraint status; Z91.81 History of falling; Z98.2 Presence of cerebrospinal fluid drainage device
CPT/HCPCS: 36415; 70450; 71045; 80048; 80053; 81001; 82962; 83036; 83605; 83735; 84100; 84145; 84439; 84443; 85025; 87040; 87077; 87081; 87086; 87186; 93005; 96361; 96374; 96375; 99291; G0378; J0696; J1644; J2405; C9113; J1610; J1815; J2060; J2270; J3475; J7030; U0001